=== PATIENT | male | born 1950 | race Caucasian/White ===

== ENCOUNTER 2019-11-11 11:20 | Observation (INO) | payer MEDICARE, OTHER ==
[~2019-11-11] VITALS: Ht 175.3 cm; Wt 96.6 kg
[2019-11-11 11:27] VITALS: BP 156/56
[2019-11-11] MEDS ORDERED: LISINOPRIL2.5 MG PO (11:31)
[2019-11-11 12:17] LABS: ABSOLUTE LYMPHOCYTES 1.7 thou/uL (0.8-5.3); ABSOLUTE MONOCYTES 0.3 thou/uL (0.0-1.2); ABSOLUTE NEUTROPHILS 4.4 thou/uL (1.6-8.1); BASOPHILS 0.7 %; EOSINOPHILS 0.7 %; HEMATOCRIT 44.8 % (42.0-52.0); HEMOGLOBIN 15.4 gm/dL (14.0-18.0); LYMPHOCYTES 25.9 %; MCH 31.4 pg (26.0-34.0); MCHC 34.5 g/dL (28.0-37.0); MONOCYTES 4.2 %; MPV 7.8 fl. (7.2-11.1); NUCLEATED RBCS 0 /100WBC; PLATELET COUNT* 199 thou/uL (150-400); POLYS 68.5 %; RBC 4.92 mil/uL (4.50-6.00); RDW-CV 13.9 % (10.5-14.5); WBC 6.4 thou/uL (4.0-11.0)
[2019-11-11 12:26] LABS: CALCIUM 8.3 mg/dL (8.5-10.1); CREATININE 1.1 mg/dL (0.6-1.3); POTASSIUM 4.5 mmol/L (3.5-5.1)
[2019-11-11 12:27] LABS: APTT 23.8 Seconds (25.0-31.3); PROTIME 10.7 Seconds (9.20-11.50)
[2019-11-11 12:31] LABS: ALBUMIN 3.7 g/dL (3.4-5.0); TOTAL BILIRUBIN 0.4 mg/dL (<0.1-1.0); TOTAL PROTEIN 7.7 g/dL (6.4-8.2)
[2019-11-11 14:42] LABS: URINE BILIRUBIN NEGATIVE (Negative); URINE BLOOD NEGATIVE (Negative); URINE CLARITY CLEAR; URINE COLOR YELLOW; URINE GLUCOSE-RANDOM NEGATIVE (Negative); URINE KETONES NEGATIVE (Negative); URINE LEUKOCYTES-REFLEX NEGATIVE (Negative); URINE NITRITE-REFLEX NEGATIVE (Negative); URINE PROTEIN NEGATIVE (Negative); URINE UROBILINOGEN 0.2 E.U./dl (0.2-1.0)
[2019-11-11 16:53] VITALS: BP 150/71
[2019-11-11 17:06] VITALS: BP 164/73
[2019-11-11 19:50] VITALS: BP 148/73
[2019-11-12] VITALS (7 sets, daily range): BP systolic 143–169; BP diastolic 68–86
[2019-11-12] MEDS ORDERED: MECLIZINE HCL25 MG PO (09:08)
--- NOTE | 2019-11-12 12:12 | EKG ---
[place] [address] ELECTROCARDIOGRAM REPORT Name: RENA ARROYO [address] [id number] Admission: 11/11/19 Attend Phys: Bony Gutierrez, Discharge: Date of : 54 Date of Service: 11/11/19 1227 Report #: [id number] THIS REPORT FOR: //name// [facility] ED Test Date: 2019-11-11 Test Time: 12:27:10 Pat Name: RENA ARROYO Department: Room: [facility] Gender: M Tag Writer: RHYS : 1950 Requested By: Mago Mcbride Order Number: [id number] MD: Farhad Travis Measurements Intervals Golden Rate: 56 P: 51 ME: 150 QRS: 10 QRSD: 105 T: 8 QT: 461 QTc: 445 Interpretive Statements Sinus rhythm Compared to ECG 10/29/2006 06:49:00 No significant changes Electronically Signed On 11-12-2019 12:10:51 CDT by Farhad Travis [email or web address] <ELECTRONICALLY SIGNED> By: Farhad Travis MD, [facility] 11/12/19 1210 1227 1227 Farhad Travis MD, [facility] /EPI
[2019-11-13 02:08] LABS: GLYCOHEMOGLOBIN (HGB A1C) 6.3 % (4.8-5.6)
== END 2019-11-12 14:06 | disposition home or self-care (01) ==
LOC: M.ERS 11:20 → M.TBA-ER 15:01 → M.2W 17:23
PROVIDERS: Personal Emergency Response Attendant; ADMIT Internal Medicine
DX: H81.10 Benign paroxysmal vertigo, unspecified ear (principal); R11.0 Nausea; E66.9 Obesity, unspecified; I10 Essential (primary) hypertension; R27.0 Ataxia, unspecified; Z86.73 Personal history of transient ischemic attack (TIA), and cerebral infarction without residual deficits